=== PATIENT | male | born 1970 | race Asian ===

== ENCOUNTER 2016-09-22 23:05 | Emergency (ER) | payer BC ==
[~2016-09-22] VITALS: Ht 172.7 cm; Wt 83.5 kg
[2016-09-23 00:14] LABS: PLATELET COUNT 262 K/uL (142-355)
[2016-09-23 00:35] VITALS: BP 149/82; TEMP 98
== END 2016-09-23 00:37 | disposition home or self-care (01) ==
LOC: ED 23:05
DX: R30.0 Dysuria (principal)
CPT/HCPCS: 36415; 81000; 85027; 99283

== ENCOUNTER 2016-09-25 21:51 | Emergency (ER) | payer BC ==
[~2016-09-25] VITALS: Ht 172.7 cm; Wt 83.5 kg
[2016-09-25 21:55] VITALS: TEMP 97.8
[2016-09-25 23:30] VITALS: BP 142/76
== END 2016-09-25 23:30 | disposition home or self-care (01) ==
LOC: ED 21:51
DX: R30.0 Dysuria (principal); N34.2 Other urethritis
CPT/HCPCS: 81000; 96365; 99284; J3490

== ENCOUNTER 2019-09-07 05:11 | Emergency (ER) | payer OTHER ==
[~2019-09-07] VITALS: Ht 172.7 cm; Wt 95.3 kg
[2019-09-07 06:43] VITALS: BP 149/91; TEMP 98
== END 2019-09-07 06:43 | disposition home or self-care (01) ==
LOC: ED 05:11
DX: N48.1 Balanitis (principal); R30.0 Dysuria
CPT/HCPCS: 87490; 87590; 99282; 99284

== ENCOUNTER 2022-05-06 21:05 | Emergency (ER) | payer OTHER ==
[~2022-05-06] VITALS: Ht 172.7 cm; Wt 95.3 kg
[2022-05-06 21:15] VITALS: BP 158/92; TEMP 98.5
== END 2022-05-06 22:20 | disposition home or self-care (01) ==
LOC: ED 21:05
DX: Z20.2 Contact with and (suspected) exposure to infections with a predominantly sexual mode of transmission (principal); R30.0 Dysuria
CPT/HCPCS: 81002; 96372; 99282; J0696

== ENCOUNTER 2022-10-10 19:56 | Emergency (ER) | payer OTHER ==
[~2022-10-10] VITALS: Ht 172.7 cm; Wt 95.3 kg
[2022-10-10 20:10] VITALS: BP 168/97; TEMP 98.2
== END 2022-10-10 21:03 | disposition home or self-care (01) ==
LOC: ED 19:56
DX: A64 Unspecified sexually transmitted disease (principal); R36.9 Urethral discharge, unspecified
CPT/HCPCS: 81002; 87490; 87590; 96372; 99283; J0696